=== PATIENT | female | born 1975 | race Caucasian/White ===

== ENCOUNTER → 2018-11-21 | Outpatient (CLI) | payer BC, OTHER ==
--- NOTE | 2018-11-21 12:34 | REP ---
Clinical: Left knee pain Technique: AP, lateral, bilateral oblique and sunrise views. Findings: The osseous structures and joint spaces are intact and normal. There is no evidence for acute fracture or dislocation. Anterior prepatellar soft tissue swelling is suggested and a small suprapatellar effusion cannot be excluded. No subcutaneous emphysema or radiodense foreign body. Impression: Swelling and small suprapatellar effusion cannot be excluded. No acute fracture or dislocation. No overt osteoarthritic degenerative changes noted. Electronically Signed by Yon Parham MD 11/21/2018 12:24 P
== END ==
LOC: M ADAMS 12:11
PROVIDERS: ATTEND Physician Assistant Medical
DX: M25.562 Pain in left knee (principal)